=== PATIENT | female | born 1985 | race African-American/Black ===

== ENCOUNTER 2017-01-14 21:25 | Emergency (ER) | payer OTHER ==
[~2017-01-14 21:25] MED LIST: FLEXERIL10 M1 PO; NAPROSYN-EC500 M1 PO; PERCOCET 7.5-31 EACH PO
[2017-01-14 21:56] LABS: URINE SOURCE CLEAN CATCH
[2017-01-14 22:03] LABS: URINE APPEARANCE CLEAR; URINE BILIRUBIN NEG (NEG); URINE BLOOD TRACE (NEG); URINE COLOR DK YELLOW; URINE GLUCOSE NEG (NEG); URINE KETONE 1+ (NEG); URINE LEUKOCYTE ESTERASE NEG (NEG); URINE NITRATE NEG (NEG); URINE PH 5.5 (5-8); URINE PROTEIN TRACE (NEG); URINE SPECIFIC GRAVITY 1.026 (1.003-1.035); URINE UROBILINOGEN 0.2 MG/DL (NEG)
[2017-01-14 22:06] LABS: CULTURE INDICATED? YES; URINE BACTERIA AUWI 1+ (NEGATIVE); URINE SQUAMOUS EPITHELIAL CELL OCC /[HPF]; UWBCS1 AUWI 0-2 (0-5)
[2017-01-14 23:53] LABS: BASOPHIL# 0.1 X10e3 (0-0.3); BASOPHIL% 1.2 % (0-2.5); EOSINOPHIL# 0.1 X10e3 (0-0.7); EOSINOPHIL% 1.3 % (0.0-7.0); HEMATOCRIT 37.9 % (35.0-45.0); HEMOGLOBIN 12.9 gm/dL (12.0-16.0); LYMPHOCYTE# 3.9 X10e3 (1.0-3.5); LYMPHOCYTE% 63.4 % (17.0-45.0); MEAN CELL VOLUME 92.5 FL (83-96); MEAN CORPUSCULAR HEMOGLOBIN 31.5 PG (28-34); MEAN CORPUSCULAR HGB CONC 34.1 g/dL (30-36); MEAN PLATELET VOLUME 9.7 FL (6.5-11.5); MONOCYTE# 0.4 X10e3 (0-1.0); NEUTROPHIL# 1.7 X10e3 (1.5-7.1); NEUTROPHIL% 27.1 % (40-75); PLATELET COUNT 204 X10e3 (140-420); RED CELL DISTRIBUTION WIDTH 12.4 % (11.0-15.5); WHITE BLOOD COUNT 6.2 X10e3 (4.0-10.5)
[2017-01-14 23:54] LABS: DIFF IND YES
[2017-01-15 00:06] LABS: ALBUMIN SERUM 4.3 g/dL (3.5-5.0); BILIRUBIN, DIRECT 0.1 mg/dL (0.0-0.2); BILIRUBIN,INDIRECT 0.8 mg/dL (0.0-0.9); BILIRUBIN,TOTAL 0.9 mg/dL (0.2-2.0); BUN/CREATININE RATIO 11.25; CALCIUM SERUM 9.1 mg/dL (8.4-10.2); CREATININE SERUM 0.8 mg/dL (0.6-1.4); GLOM FILT RATE Estimated 113.2 mL/min (>60); POTASSIUM 3.8 mmol/L (3.5-5.1); PROTEIN TOTAL SERUM 7.2 g/dL (6.0-8.3)
[2017-01-15 00:19] LABS: PLATELET ESTIMATE DECREASED (NORMAL); RBC NORMAL YES
[2017-03-10] MEDS ORDERED: TYLENOL WITH C1 EACH PO (14:44)
[2017-03-10] MEDS ORDERED: ONDANSETRON HCL4 M1 PO (14:45)
[2017-03-10] MEDS ORDERED: OMEPRAZOLE40 M1 PO (14:45)
[2017-03-10] MEDS ORDERED: DICYCLOMINE HCL20 MG PO (14:45)
[2017-03-10] MEDS ORDERED: ZANTAC300 MG PO (14:46)
[2017-04-24] MEDS ORDERED: (NONE)2.5 MG BU (12:44)
[2017-04-24] MEDS ORDERED: PRENATAL VITAM1 EAC1 (12:45)
== END 2017-01-15 01:16 | disposition home or self-care (01) ==
LOC: CED 21:25 → CFTX 23:59 → CED 23:59
DX: K29.00 Acute gastritis without bleeding (principal); F17.200 Nicotine dependence, unspecified, uncomplicated; Z98.890 Other specified postprocedural states
CPT/HCPCS: 36415; 80048; 80076; 81003; 83690; 84703; 85025; 87086; 87088; 87186; 99284